=== PATIENT | female | born 1980 | race Caucasian/White ===

== ENCOUNTER 2019-04-18 08:36 | Emergency (ER) | payer OTHER ==
--- NOTE | 2019-04-18 09:07 | ED ---
Hypertension - HPI Summary HPI Summary: This patient is a 39 year old F presenting to ED with a chief complaint of elevated BP and HR and dry mouth since 0730 this morning. Patient reports having similar symptoms on 04/14/19 that lasted all day. She drank Gatorade all day which didnt really help, but it resolved on its own. Today, it started again and patient reports having BP 160/108 and HR 115 while sitting. Patient states she has a history of anxiety and panic attacks, but states this feels different. She feels overheated as well. She has not started taking new medication. Patient is on control, hydroxyzine, Wellbutrin, cyclobenzaprine, melatonin. The patient rates the pain 0/10 in severity. Symptoms aggravated by nothing. Symptoms alleviated by nothing. Patient reports dizziness, chest tightness, diarrhea x1, blurred vision. Patient denies excessive vaginal bleeding, fever, blood in stool, vomiting. Medications reviewed. Allergies noted. - History of Current Complaint Chief Complaint: EDHypertension Stated Complaint: HIGH BP PER PT Time Seen by Provider: 04/18/19 08:54 Hx Obtained From: Patient Onset/Duration: Started Hours Ago - Since 0730 this morning, Started Days Ago - First episode on 04/14/19, Still Present Timing: Constant, Lasting Hours - Since 0730 this morning Reported Blood Pressure Prior To Arrival: 160/108 Aggravating Factor(s): Nothing Alleviating Factor(s): Nothing Associated Signs & Symptoms: Negative - excessive vaginal bleeding, fever, blood in stool, vomiting, Chest Pain - Tightness, Vision Changes, Anxiety/Stress , Dizziness - Allergies/Home Medications Allergies/Adverse Reactions: Allergies Allergy/AdvReac Type Severity Reaction Status Date / Time No Known Allergies Allergy Verified 04/18/19 08:41 Home Medications: Home Medications Bupropion XL* [Wellbutrin XL *] 150 mg PO DAILY 04/18/19 [History Confirmed ] Cyclobenzaprine TAB* [Flexeril 10 MG TAB*] 10 mg PO SEE INSTRUCTIONS PRN [History Confirmed 04/18/19] Melatonin 5 mg PO BEDTIME 04/18/19 [History Confirmed 04/18/19] Norethindrone/Eth Est .10/27NF [Junel (NF)] 1 tab PO DAILY 04/18/19 [ History Confirmed 04/18/19] hydrOXYzine HCL TAB* [Atarax 25 MG TAB*] 25 mg PO SEE INSTRUCTIONS PRN 04/18/19 [History Confirmed 04/18/19] PMH/Surg Hx/FS Hx/Imm Hx Sensory History: Reports: Hx Contacts or Glasses Denies: Hx Legally Blind, Hx Deafness Opthamlomology History: Reports: Hx Contacts or Glasses Denies: Hx Legally Blind EENT History: Denies: Hx Deafness Psychiatric History: Reports: Hx Anxiety, Hx Panic Disorder - Surgical History Surgery Procedure, Year, and Place: Denies Infectious Disease History: No Infectious Disease History: Denies: Traveled Outside the [place] in Last 30 Days - Social History Alcohol Use: None Hx Substance Use: Yes Substance Use Type: Reports: Marijuana. Denies: Cocaine Hx Tobacco Use: No Smoking Status (MU): Never Smoked Tobacco Review of Systems Constitutional: Other - Overheated Negative: Fever Positive: Blurred Vision ENT: Other - Dry mouth Positive: Chest Pain - Tightness Gastrointestinal: Negative - Blood in stool Positive: Diarrhea - x1. Negative: Vomiting Genitourinary: Negative - Excessive vaginal bleeding Neurological: Other - Dizziness All Other Systems Reviewed And Are Negative: Yes Physical Exam - Summary Physical Exam Summary: Constitutional: Well-developed, Well-nourished, Alert. (-) Distressed Skin: Warm, Dry HENT: Normocephalic; Atraumatic Eyes: Conjunctiva normal Neck: Musculoskeletal ROM normal neck. (-) JVD, (-) Stridor, (-) Tracheal deviation Cardio: Rhythm regular, rate normal, Heart sounds normal; Intact distal pulses; Radial pulses are 2+ and symmetric. (-) Murmur Pulmonary/Chest wall: Effort normal. (-) Respiratory distress, (-) Wheezes, (-) Rales Abd: Soft, (-) tenderness, (-) Distension, (-) Guarding, (-) Rebound Musculoskeletal: (-) Edema Lymph: (-) Cervical adenopathy Neuro: Alert, Oriented x3 Psych: Appears anxious Triage Information Reviewed: Yes Vital Signs On Initial Exam: Initial Vitals Temp Pulse Resp BP Pulse Ox 98.4 F 93 20 157/93 100 04/18/19 08:37 04/18/19 08:37 04/18/19 08:37 04/18/19 08:37 04/18/19 08:37 Vital Signs Reviewed: Yes Procedures - Sedation Patient Received Moderate/Deep Sedation with Procedure: No Diagnostics - Vital Signs Vital Signs Temp Pulse Resp BP Pulse Ox 04/18/19 08:37 98.4 F 93 20 157/93 100 - Laboratory Result Diagrams: 04/18/19 09:29 04/18/19 09:29 Lab Statement: Any lab studies that have been ordered have been reviewed, and results considered in the medical decision making process. - EKG 0844 Cardiac Rate: NL - 80 BPM EKG Rhythm: Sinus Rhythm ST Segment: Normal Ectopy: None Summary of EKG Findings: NSR at 80 BPM, no STEMI. Dr. Parham has reviewed and interpreted this EKG. Re-Evaluation - Re-Evaluation First Eval Re-Evaluation Time: 10:32 Comment: Discussed results with patient. Patient will be discharged home with dx of high blood pressure and tachycardia. Patient understands and agrees with this plan. Hypertension Course/Dx - Course Course Of Treatment: Patient is here with multiple episodes of where she feels her mouth turns dry, becomes tachycardic and hypertensive. Patient has a history of anxiety but these are not her typical symptoms. Upon arrival, patient's heart rate was normalized and was normal sinus rhythm on EKG. Patient had a CBC, CMP, thyroid studies performed which were all grossly unremarkable. Patient does not have an underlying emergent condition and was discharged with PCP follow-up. - Diagnoses Provider Diagnoses: High blood pressure, Tachycardia Discharge ED - Sign-Out/Discharge Documenting (check all that apply): Patient Departure - Discharge - Discharge Plan Condition: Stable Disposition: HOME Patient Education Materials: Hypertension (ED), Tachycardia (ED) Forms: *Work Release Referrals: Rosemary Ramirez DO [Primary Care Provider] - 3 Days Additional Instructions: Follow up with your PCP in 1-3 days to get your blood pressure rechecked. Please return to the ER immediately if you have any troubling or worsening symptoms (chest pain, heart racing, trouble breathing). - Billing Disposition and Condition Condition: STABLE Disposition: Home - Attestation Statements Document Initiated by Scribe: Yes Documenting Scribe: Faisal Cifuentes Provider For Whom Scribe is Documenting (Include Credential): Amanuel Parham MD Scribe Attestation: IFaisal, scribed for Amanuel Parham MD on 04/18/19 at 1617. Scribe Documentation Reviewed: Yes Provider Attestation: The documentation as recorded by the scribe, Faisal Cifuentes accurately reflects the service I personally performed and the decisions made by me, Amanuel Parham MD Status of Scribe Document: Viewed
[2019-04-18 09:36] LABS: ABS Basophils 0.1 10^3/ul (0-0.2); ABS Lymphocytes 1.1 10^3/ul (1.0-4.8); ABS Monocytes 0.5 10^3/ul (0-0.8); ABS Neutrophils 7.8 10^3/ul (1.5-7.7); Eosinophil % 0.4 %; Hematocrit 43 % (35-47); Hemoglobin 14.6 g/dL (12.0-16.0); Lymphocyte % 11.7 %; Mean Corpuscular HGB Conc 34 g/dL (31-36); Mean Corpuscular Hemoglobin 32 pg (27-31); Mean Corpuscular Volume 93 fL (80-97); Mean Platelet Volume 7.1 fL (7.4-10.4); Platelet Count 308 10^3/uL (150-450); Red Cell Distribution Width 14 % (10-15); White Blood Count 9.5 10^3/uL (3.5-10.8)
[2019-04-18 09:57] LABS: ALT 8 U/L (7-52); AST 13 U/L (13-39); Albumin 4.1 g/dL (3.2-5.2); Albumin/Globulin Ratio 1.4 (1-3); Alkaline Phosphatase 68 U/L (34-104); Anion Gap 7 mmol/L (2-11); BUN/Creatinine Ratio 13.2 (8-20); Blood Urea Nitrogen 9 mg/dL (6-24); CO2 Carbon Dioxide 20 mmol/L (22-32); Calcium 9.1 mg/dL (8.6-10.3); Chloride 110 mmol/L (101-111); EGFR African American 116.6 (>60); EGFR Non-African American 96.3 (>60); Glucose 103 mg/dL (70-100); Sodium 137 mmol/L (135-145); Total Protein 7.1 g/dL (6.4-8.9)
[2019-04-18 10:02] LABS: HCG Pregnancy < 0.60 mIU/mL
[2019-04-18 10:28] LABS: TSH (Thyroid Stimulating Horm) 1.01 mcIU/mL (0.34-5.60)
[2019-04-18 10:30] LABS: Free T4 0.88 ng/dL (0.61-1.12)
[2019-04-18 10:42] VITALS: BP 132/62
== END 2019-04-18 10:42 | disposition home or self-care (01) ==
LOC: ED 08:36
DX: R03.0 Elevated blood-pressure reading, without diagnosis of hypertension (principal); R00.0 Tachycardia, unspecified; Z79.899 Other long term (current) drug therapy
CPT/HCPCS: 36415; 80053; 84439; 84443; 84484; 84702; 85025; 93005; 99282